=== PATIENT | female | born 1975 | race Two or more races ===

== ENCOUNTER 2018-08-24 20:00 | Emergency (ER) | payer OTHER ==
[~2018-08-24] VITALS: Ht 172.7 cm; Wt 67.1 kg
[2018-08-24] MEDS ORDERED: TAMOXIFEN CITRA10 MG (20:20)
[2018-08-24] MEDS ORDERED: HERCEPTIN150 MG (20:20)
== END 2018-08-24 21:54 | disposition home or self-care (01) ==
LOC: ER 20:00
DX: N39.498 Other specified urinary incontinence (principal)

== ENCOUNTER 2021-09-26 11:59 | Outpatient (CLI) | payer OTHER ==
[~2021-09-26 11:59] MED LIST: HERCEPTIN150 MG; TAMOXIFEN CITRA10 MG
== END 2021-09-26 12:00 | disposition home or self-care (01) ==
LOC: NUCLEAR 11:59
PROVIDERS: ATTEND General Practice
DX: C50.811 Malignant neoplasm of overlapping sites of right female breast (principal)

== ENCOUNTER 2023-09-28 13:18 | Outpatient (CLI) | payer OTHER | END 2023-09-28 13:20 | disposition home or self-care (01) | LOC: NUCLEAR 13:18 | PROVIDERS: ATTEND Internal Medicine | DX: M85.88 Other specified disorders of bone density and structure, other site (principal); M81.0 Age-related osteoporosis without current pathological fracture ==